=== PATIENT | female | born 1990 | race Hispanic/Latino ===

== ENCOUNTER 2016-09-03 13:38 | Emergency (ER) | payer MEDICAID, OTHER ==
--- NOTE | 2016-09-03 14:56 | ER PHYSICIAN DOCUMENTATION ---
Physician Documentation [facility] Name:Catalina Azevedo Age:26 yrs Sex:Female :1990 Arrival Date:09/03/2016 Time:13:38 Bed4 Private MD:Rolanda Arteaga ED, Tom Disposition: 09/03 14:45 Chart complete. tl1 Disposition: 09/03/16 14:47 Discharged to Home/Self Care. Impression: Anaphylaxis. - Condition is Good. - Discharge Instructions: ANAPHYLAXIS, General. - Prescriptions for EpiPen 0.3 mg/0.3 mL Injection - inject 0.3 milligram by INTRAMUSCULAR route as needed; 1 packet. - Medical Reconciliation form form. - Follow up: Rolanda Arteaga DO; When: 4- 6 days; Reason: Recheck today's complaints, Continuance of care. - Problem is new. - Symptoms have improved. HPI: 13:40 This 26 yrs old Female presents to ER via Walk In with complaints of tl1 Difficulty Swallowing. 13:40 The patient presents with tightness in the throat and difficulty swallowing.. Onset: tl1 The symptom(s)/episode began/occurred suddenly, 45 minute(s) ago. Severity of symptoms: At their worst the symptoms were moderate, in the emergency department the symptoms are unchanged. Associated signs and symptoms: Pertinent positives: dysphagia, nausea, shortness of breath Pertinent negatives chest pain, chills, earache, fever, flu-like symptoms, headache, rhinorrhea, vomiting. The patient has not experienced similar symptoms in the past. She was eating pork and potatoes when this started. She denies h/o any food or environmental allergies. . Historical: - Allergies: No known drug Allergies; - Home Meds: 1. None - PMHx: None; - PSHx: None; - Tetanus: < 10 years. - Ebola Screening: : Patient negative for fever greater than or equal to 101.5 degrees Fahrenheit, and additional compatible Ebola Virus Disease symptoms. - Immunization history: Flu Vaccine < 1 year. - Social history: Smoking status: Patient states was never smoker of tobacco. ROS: 14:27 ENT: Positive for difficulty swallowing, Negative for ear pain, rhinorrhea, sinus tl1 congestion, sore throat, difficulty handling secretions, hoarseness. 14:27 All other systems are negative. Exam: 14:28 Constitutional: This is a well developed, well nourished patient who is awake, alert, tl1 and in no acute distress. Head/Face: Normocephalic, atraumatic. Eyes: Pupils equal round and reactive to light, extra-ocular motions intact. Lids and lashes normal. Conjunctiva and sclera are non-icteric and not injected. Cornea within normal limits. Periorbital areas with no swelling, redness, or edema. ENT: Nares patent. No nasal discharge, no septal abnormalities noted. Tympanic membranes are normal and external auditory canals are clear. Oropharynx with no redness, swelling, or masses, exudates, or evidence of obstruction, uvula midline. Mucous membranes moist. Neck: Trachea midline, no thyromegaly or masses palpated, and no cervical lymphadenopathy. Supple, full range of motion without nuchal rigidity, or vertebral point tenderness. No Meningismus. Cardiovascular: Regular rate and rhythm with a normal S1 and S2. No gallops, murmurs, or rubs. Normal PMI, no JVD. No pulse deficits. Respiratory: Lungs have equal breath sounds bilaterally, clear to auscultation and percussion. No rales, rhonchi or wheezes noted. No increased work of breathing, no retractions or nasal flaring. 14:28 Abdomen/GI: Soft, non-tender, with normal bowel sounds. No distension or tympany. No tl1 guarding or rebound. No evidence of tenderness throughout. 14:28 Neuro: Orientation: is normal, Mentation: is normal, Memory: is normal, Cranial nerves: grossly normal, Motor: moves all fours, Gait: is steady, at a normal pace, without difficulty, appropriate for age. 14:28 Psych: Behavior/mood is anxious, Affect is calm, Oriented to person, place, time, Judgement / Insight is normal. Vital Signs: 13:44 BP 127 / 78 RA Sitting; Pulse 93; Resp 16; Temp 98.3(TE); Pulse Ox 96% on R/A; Weight la 68.04 kg (R); Height 5 ft. 4 in. (162.56 cm) (R); Pain 0/10; 13:54 BP 114 / 69 RA Sitting; Pulse 93; Resp 16; Pulse Ox 96% on R/A; la 14:23 BP 125 / 65 RA Sitting; Pulse 116; Resp 16; Pulse Ox 96% on R/A; Pain 0/10; la 14:42 BP 127 / 71 RA Sitting; Pulse 97; Resp 16; Pulse Ox 95% on R/A; Pain 0/10; la 13:44 Body Mass Index 25.75 (68.04 kg, 162.56 cm) la MDM: 13:57 Patient medically screened. tl1 14:29 Data reviewed: vital signs, nurses notes, and as a result, I will. tl1 14:41 Special discussion: Discussed anaphylaxis in some detail and when to use an epi pen.. tl1 ED course: She had complete resolution of her symptoms 15-20 min after receiving the epinephrine .. 09/04 17:48 Order name: TRYPTASE EDMS Dispensed Medications: 13:54 Drug: EPINEPHrine 1:1000 0.3 ml; Route: IM; Site: left deltoid; la 14:01 Follow up: Response: No adverse reaction; Marked relief of symptoms la Signatures: Andreea Garibay Tom, MD MD tl1
--- NOTE | 2016-09-03 14:56 | ER NURSING DOCUMENTATION ---
Nurse's Notes [facility] Name:Catalina Azevedo Age:26 yrs Sex:Female :1990 Arrival Date:09/03/2016 Time:13:38 Bed4 Private MD:Rolanda Arteaga Diagnosis:Anaphylaxis Presentation: 09/03 13:41 Presenting complaint: Patient states: about 40 minutes [employer] she was eating a pork la sandwich and developed difficulty swallowing and difficulty breathing. Denies allergies to food or medications. NAD, able to speak in full sentences. Transition of care: Other here at [facility]. 13:41 Acuity: TOO 3 la 13:41 Method Of Arrival: Walk In la Triage Assessment: 13:45 General: Appears comfortable, Behavior is appropriate for age, cooperative. Pain: la Denies pain. EENT: Throat is clear is pink with gag reflex present, Reports difficulty swallowing since 1300. Neuro: Level of Consciousness is awake, alert, obeys commands, Oriented to person, place, time, event, Reports light headed. Cardiovascular: Denies palpitations. Respiratory: Airway is patent Trachea midline Respiratory effort is even, unlabored, Respiratory pattern is regular, symmetrical, Breath sounds are clear bilaterally. Reports shortness of breath at rest Onset: The symptoms/episode began/occurred just prior to arrival. GI: No deficits noted. : No deficits noted. Derm: No deficits noted. no rash, skin pink, warm and dry. Musculoskeletal: No deficits noted. Historical: - Allergies: No known drug Allergies; - Home Meds: 1. None - PMHx: None; - PSHx: None; - Tetanus: < 10 years. - Ebola Screening: : Patient negative for fever greater than or equal to 101.5 degrees Fahrenheit, and additional compatible Ebola Virus Disease symptoms. - Immunization history: Flu Vaccine < 1 year. - Social history: Smoking status: Patient states was never smoker of tobacco. Screenin:49 Infectious Disease Risk None. Abuse screen: Denies threats or abuse. Nutritional la screening: No deficits noted. Assessment: 13:48 See Triage Assessment done by same RN. la 14:24 Neuro: Denies lightheadedness. Respiratory: Airway is patent Respiratory effort is la even, unlabored, Respiratory pattern is regular, symmetrical, Breath sounds are clear bilaterally. Denies shortness of breath Parent/caregiver reports the patient having feeling better. 14:25 EENT: Denies difficulty swallowing. la 14:36 Reassessment: Patient states feeling better. Patient states symptoms have improved. la Patient appears in no apparent distress at this time. Dr Rankin in with pt. 14:43 Reassessment: Patient states feeling better. Patient states symptoms have improved. la Patient appears in no apparent distress at this time. 14:43 Respiratory: Respiratory effort is even, unlabored, Respiratory pattern is Breath la sounds are clear bilaterally. Vital Signs: 13:44 BP 127 / 78 RA Sitting; Pulse 93; Resp 16; Temp 98.3(TE); Pulse Ox 96% on R/A; Weight la 68.04 kg (R); Height 5 ft. 4 in. (162.56 cm) (R); Pain 0/10; 13:54 BP 114 / 69 RA Sitting; Pulse 93; Resp 16; Pulse Ox 96% on R/A; la 14:23 BP 125 / 65 RA Sitting; Pulse 116; Resp 16; Pulse Ox 96% on R/A; Pain 0/10; la 14:42 BP 127 / 71 RA Sitting; Pulse 97; Resp 16; Pulse Ox 95% on R/A; Pain 0/10; la 13:44 Body Mass Index 25.75 (68.04 kg, 162.56 cm) la ED Course: 13:40 Patient arrived in ED. ds 13:40 Rolanda Arteaga DO is Private Physician. ds 13:41 Andreea Garibay is Primary Nurse. la 13:43 Triage completed. la 13:49 Valuables Remains with patient Patient has correct armband on for positive la identification. Placed in gown. Bed in low position. Call light in reach. Side rails up X 1. Door closed. Verbal reassurance given. Pillow given. 13:49 Inserted saline lock: 20 gauge in left forearm and blood collected. la 13:57 Calvin Rankin MD is Attending Physician. tl1 14:45 Rolanda Arteaga DO is Referral Physician. tl1 Administered Medications: 13:54 Drug: EPINEPHrine 1:1000 0.3 ml; Route: IM; Site: left deltoid; la 14:01 Follow up: Response: No adverse reaction; Marked relief of symptoms la Outcome: 14:47 Discharge ordered by . tl1 14:54 Discharged to home ambulatory. la 14:54 Condition: improved 14:54 Discharge Assessment: Patient awake, alert and oriented x 3. No cognitive and/or functional deficits noted. Patient verbalized understanding of disposition instructions. 14:54 Discharge instructions given to patient, Instructed on discharge instructions, follow up and referral plans. medication usage, Demonstrated understanding of medications, Prescriptions given X 1. 14:54 IV D/Wilbert 14:55 Patient left the ED. nestor 09/04 10:24 Discharge F/U Call: Unable to reach: no answer st Signatures: Suzanne Hale RN RN st [facility], Sejal, Reg Reg Andreea Engel Tom, MD MD tl1
== END 2016-09-03 14:56 | disposition home or self-care (01) ==
LOC: ER 13:38
DX: T78.2XXA Anaphylactic shock, unspecified, initial encounter (principal)
CPT/HCPCS: 83520; 96372; 99284; J0171